=== PATIENT | male | born 1980 | race Two or more races ===

== ENCOUNTER 2019-12-12 17:33 | Emergency (ER) | payer MEDICAID ==
[~2019-12-12] VITALS: Ht 170.2 cm; Wt 102.0 kg
[2019-12-12] MEDS ORDERED: ketorolac tromethamine 15mg/ml inj. IM ONE (17:55)
[2019-12-12] MEDS ORDERED: orphenadrine citrate 60mg/2ml inj. IM ONE (17:55)
[2019-12-12] MEDS ORDERED: NAPR-56 PO (18:06)
[2019-12-12] MEDS ORDERED: METH-360 PO (18:06)
[2019-12-12 18:21] VITALS: BP 155/118
== END 2019-12-12 18:22 | disposition home or self-care (01) ==
LOC: ER 17:33
DX: M54.5 Low back pain (principal); Z98.890 Other specified postprocedural states; X50.1XXA Overexertion from prolonged static or awkward postures, initial encounter; Y93.89 Activity, other specified; Y92.89 Other specified places as the place of occurrence of the external cause; Y99.9 Unspecified external cause status
CPT/HCPCS: 96372; 99284; J1885; J2360

== ENCOUNTER 2022-08-22 17:16 | Emergency (ER) | payer MEDICAID ==
[~2022-08-22] VITALS: Ht 167.6 cm; Wt 98.5 kg
[~2022-08-22 17:16] MED LIST: METH-360 PO
[2022-08-22 20:52] VITALS: BP 125/74
== END 2022-08-22 20:56 | disposition home or self-care (01) ==
LOC: ER 17:18
DX: M79.605 Pain in left leg (principal)
CPT/HCPCS: 93971; 99284

== ENCOUNTER 2023-08-24 13:20 | Emergency (ER) | payer MEDICAID ==
[~2023-08-24] VITALS: Ht 152.4 cm; Wt 93.9 kg
[2023-08-24] MEDS ORDERED: proparacaine 0.5% ophthalmic drops 15ml LEFTEYE ONE (14:30)
[2023-08-24] MEDS ORDERED: fluorescein sod 1mg ophthalmic strip LEFTEYE ONE (14:30)
[2023-08-24 14:33] VITALS: BP 151/97; PULSE 72; RESP 20; TEMP 99.5; O2SAT 96
[2023-08-24] MEDS ORDERED: ERYT1OIN6 LEFTEYE (14:52)
== END 2023-08-24 15:05 | disposition home or self-care (01) ==
LOC: ER 13:21
DX: S05.02XA Injury of conjunctiva and corneal abrasion without foreign body, left eye, initial encounter (principal); H11.32 Conjunctival hemorrhage, left eye; Z98.890 Other specified postprocedural states; Z79.899 Other long term (current) drug therapy; X58.XXXA Exposure to other specified factors, initial encounter; Y93.89 Activity, other specified; Y92.89 Other specified places as the place of occurrence of the external cause; Y99.8 Other external cause status
CPT/HCPCS: 99283; J3490

== ENCOUNTER 2024-07-27 14:42 | Emergency (ER) | payer MEDICAID, OTHER ==
[~2024-07-27] VITALS: Ht 170.2 cm; Wt 93.6 kg
[2024-07-27] MEDS: cyclobenzaprine 10mg tablet PO ONE (17:38)
[2024-07-27] MEDS: ondansetron 4mg rapidly disintigrating tab PO ONE (17:38)
[2024-07-27] MEDS: HYDROcodone/acetaminophen 5mg/325mg tablet PO ONE (17:38)
[2024-07-27] MEDS: ketorolac trometh 30MG/ML vial 30 MG/ML VIAL IM ONE (17:40)
[2024-07-27] MEDS ORDERED: LIDO700A32 TOP (19:07)
[2024-07-27] MEDS ORDERED: CYCL-1 PO (19:07)
[2024-07-27 19:47] VITALS: BP 157/97; PULSE 74; RESP 16; TEMP 97.8; O2SAT 98
== END 2024-07-27 19:48 | disposition home or self-care (01) ==
LOC: ER 14:43
DX: S16.1XXA Strain of muscle, fascia and tendon at neck level, initial encounter (principal); S29.012A Strain of muscle and tendon of back wall of thorax, initial encounter; S39.012A Strain of muscle, fascia and tendon of lower back, initial encounter; R51.9 Headache, unspecified; Z98.890 Other specified postprocedural states; W11.XXXA Fall on and from ladder, initial encounter; Y93.89 Activity, other specified; Y92.89 Other specified places as the place of occurrence of the external cause; Y99.8 Other external cause status
CPT/HCPCS: 70450; 72070; 72100; 72125; 72131; 96372; 99285; J1885